=== PATIENT | female | born 1975 | race African-American/Black ===

== ENCOUNTER 2017-09-04 06:31 | Day surgery (SDC) | payer OTHER ==
[2017-08-28 09:18] LABS: HEMATOCRIT 42.3 % (36.0-47.0); HEMOGLOBIN 14.2 g/dL (12.0-15.5); MEAN CORPUSCULAR HEMOGLOBIN 28.8 pg (27.0-33.4); MEAN CORPUSCULAR HGB CONC 33.5 g/dL (32.0-36.0); MEAN CORPUSCULAR VOLUME 86 fl (80-97); PLATELET COUNT 160 10^3/uL (150-450); RED BLOOD COUNT 4.92 10^6/uL (3.72-5.28); RED CELL DISTRIBUTION WIDTH 13.6 % (11.5-14.0); WHITE BLOOD COUNT 7.9 10^3/uL (4.0-10.5)
[2017-08-28 09:43] LABS: ALANINE AMINOTRANSFERASE 29 U/L (9-52); ALBUMIN 4.3 g/dL (3.5-5.0); ALKALINE PHOSPHATASE 53 U/L (38-126); ANION GAP 10 (5-19); ASPARTATE AMINO TRANSFERASE 19 U/L (14-36); BILIRUBIN,DIRECT 0.3 mg/dL (0.0-0.4); BILIRUBIN,TOTAL 0.8 mg/dL (0.2-1.3); BLOOD UREA NITROGEN 18 mg/dL (7-20); CALCIUM 9.8 mg/dL (8.4-10.2); CARBON DIOXIDE 26 mmol/L (22-30); CHLORIDE 106 mmol/L (98-107); GLUCOSE 76 mg/dL (75-110); POTASSIUM 4.1 mmol/L (3.6-5.0); SODIUM 141.5 mmol/L (137-145); TOTAL PROTEIN 7.3 g/dL (6.3-8.2)
[~2017-09-04 06:31] MED LIST: CEFAZOLIN 2 GM/D5W RTU 2 GM/50 ML RTUPB IV PRN; LACTATED RINGERS 1000 ML IV PRN
[2017-09-04] MEDS ORDERED: DIPHENHYDRAMINE HCL 50 MG/ML VIAL ONE (07:13)
[2017-09-04] MEDS ORDERED: PROPOFOL INJ 200 MG/20 ML VIAL IV ONE (07:13)
[2017-09-04] MEDS ORDERED: MIDAZOLAM 2 MG/2 ML INJ ONE (07:13)
[2017-09-04] MEDS ORDERED: FENTANYL CITRATE INJ/PF 250 MCG/5 ML AMPULE ONE (07:13)
[2017-09-04] MEDS ORDERED: SCOPOLAMINE HYDROBROMIDE 1.5 MG PATCH.TD72 ONE (07:14)
[2017-09-04] MEDS ORDERED: ACETAMINOPHEN 100 ML IV ONE (07:14)
[2017-09-04] MEDS ORDERED: HYDROMORPHONE HCL INJ/PF 2 MG/ML AMPULE ONE ×2 (07:14→11:39)
[2017-09-04] MEDS ORDERED: IBUPROFEN 800 MG in NORMAL SALINE 250 ML IV PRN (07:36)
[2017-09-04] MEDS ORDERED: IBUPROFEN 800 MG in DEXTROSE 5%-WATER 250 ML IV PRN (08:00)
[2017-09-04] MEDS ORDERED: IBUPROFEN 800 MG in DEXTROSE 5%-WATER 250 ML IV ONE (08:00)
[2017-09-04] MEDS ORDERED: CLINDAMYCIN 900 MG/D5W RTU 50 ML IV PRN (08:28)
[2017-09-04] MEDS ORDERED: CLINDAMYCIN 900 MG/D5W RTU 50 ML IV ONE (08:28)
[2017-09-04] MEDS ORDERED: FENTANYL CITRATE INJ/PF 100 MCG/2 ML AMPUL IV PRN ×3 (09:14)
[2017-09-04] MEDS ORDERED: MORPHINE SULFATE 10 MG/ML INJ IV PRN ×2 (09:14→11:04)
[2017-09-04] MEDS ORDERED: MEPERIDINE HCL/PF INJ 25 MG/1 ML DISP.SYRIN IV PRN (09:14)
[2017-09-04] MEDS ORDERED: PROMETHAZINE HCL INJ 25 MG/1 ML VIAL IV PRN ×2 (09:14→11:05)
[2017-09-04] MEDS ORDERED: DIPHENHYDRAMINE HCL 50 MG/ML VIAL IV PRN (09:14)
[2017-09-04] MEDS ORDERED: BUPIVACAINE HCL 0.25 % INJ/PF (2.5 MG/1 ML) 30 ML VIAL ONE (09:40)
[2017-09-04] MEDS ORDERED: METHYLENE BLUE 50 MG/10 ML AMPULE ONE (09:41)
[2017-09-04] MEDS ORDERED: ONDANSETRON 4 MG TAB.RAPDIS PO PRN (11:05)
[2017-09-04] MEDS: FENTANYL CITRATE INJ/PF 100 MCG/2 ML AMPUL ONE ×2 (11:20→11:25)
[2017-09-04] MEDS ORDERED: NORMAL SALINE 1000 ML 1,000 ML IV ONE (12:00)
--- NOTE | 2017-09-04 12:54 | OPERATIVE REPORT E ---
Operative Report NAME: DORIE HERRERA : 1975 AGE: 42Y DATE OF SURGERY: 09/04/2017 ROOM: PREOPERATIVE DIAGNOSIS: 1. CHRONIC PELVIC PAIN. 2. STATUS POST HYSTEROSCOPY D AND C WITH NOVASURE ENDOMETRIAL ABLATION 1 YEAR AGO. POSTOPERATIVE DIAGNOSIS: 1. CHRONIC PELVIC PAIN. 2. STATUS POST HYSTEROSCOPY D AND C WITH NOVASURE ENDOMETRIAL ABLATION 1 YEAR AGO. OPERATION: 1. Robotic-assisted laparoscopic hysterectomy. 2. Cystoscopy. SURGEON: Ly Mane ANESTHESIA: General. ESTIMATED BLOOD LOSS: 100 mL. INTRAVENOUS FLUIDS: 2 L of normal saline. URINE OUTPUT: 200 mL clear urine. COMPLICATIONS: None. INDICATION: The patient is a 42-year-old G2, P2-0-0-2 with a history of hysteroscopy D and C with Novasure endometrial ablation 1 year ago with persistent chronic pelvic pain that was not responsive to previous surgical intervention. Patient desires definitive surgical treatment and removal of her uterus. Patient was counseled on procedure including but not limited to bleeding, infection, injury to surrounding organ and tissue including bladder, bowel, or vasculature and need of transfusion with packed red blood cells, or the possibility of turning the case into an exploratory laparotomy in case there is extensive bleeding that cannot be controlled via the robot. The patient understood and consented to the procedure and agreed to proceed to the operating room. FINDINGS: Normal ovaries bilaterally, previously surgically absent fallopian tubes due to previous bilateral salpingectomy, soft boggy uterus consistent with adenomyosis. PROCEDURE: Patient was taken to the operating room. General anesthesia was induced without difficulty. Patient was placed in the dorsal lithotomy position and was sterilely prepped and draped in the usual sterile. A Jun Hugger was placed to maintain control of core body temperature. Troy catheter was placed in the bladder. A single-tooth tenaculum was placed in the cervix and grasped the cervical os with a dilator. Uterus sounded to approximately 10 cm. Two [id number] stitches around 3 and 9 o'clock were placed for anchoring stitches before placing the VCare and the VCare manipulator was attached to the uterus in a cervical ring and anchored to the stitches on the right and left. The weighted speculum and single-tooth tenaculum were removed. Two sutures were placed on the lateral aspect of the cervix to be used as traction later for hemostasis as well in the procedure and were anchored to the stitches on the right and the left within the ring itself. A horizontal supraumbilical incision was performed where the Veress needle was introduced. The Veress needle was placed in the abdominal cavity. Through the Veress needle was carbon dioxide was infused until pneumoperitoneum was established and maintained, and this was done after a drop test was successfully performed. The Veress needle removed. Supraumbilical incision was slightly extended. A 12 mm trocar was inserted and placed in the abdominal cavity under direct visualization with the laparoscope without any difficulty. Trocar removed. The robot laparoscope was placed in the abdominal cavity. Please see the above findings. Three additional ports, one in the right lower, one in the left lower, and one in the right upper quadrant were inserted under direct visualization. Special attention was then paid to the ureters bilaterally and the ureters were both well away from the surgical field at all times. Peristalsis was visualized and it was normal in nature. At this point after visualizing the ureters and making sure that they were away from the surgical intervention, the right round ligament was cauterized and transected. The right utero-ovarian ligament was cauterized and transected all the way down to the level of uterine's. The right bladder flap side was initiated. The right uterine's were cauterized as well. On the contralateral side, it was performed in a similar fashion where the left round ligament was cauterized and transected, and the left utero-ovarian ligament was cauterized and transected all the way down to the level of the uterine's. The bladder flap from the contralateral side was performed and connecting it to the other side and pushing the bladder down as much as I could. The left uterine blood vessel was cauterized and transected. At this point, anterior colpotomy was performed circumscribing the cervix. After performing the anterior and posterior colpotomy and connecting in a circumscribed fashion, the uterus was removed with the cervix through the VCare. The vaginal cuff was closed using the V-Loc suture in a continuous fashion. At this time, irrigation was performed. The vaginal cuff was completely intact and no oozing was visualized from the pelvic sidewalls or the vaginal cuff. The bladder was far away from the vaginal cuff. Visualization of both the ureters were performed. Both ureters were peristalsing and acting normally. FloSeal was applied to the vaginal cuff region. At this point, after performing the vaginal cuff closure with the V-Loc suture and injecting with the FloSeal on the vaginal cuff, I asked Anesthesia to give methylene blue for the cystoscopy portion preparation. Cystoscopy was performed. The cystoscopy revealed completely normal ureters with blue hue coming through both the right and left ureters. Also, the bladder integrity was visualized. There were no foreign bodies, injuries, or sutures identified in the bladder. The double bubble sign were identified, and the integrity of the bladder wall was completely normal. At this point, the cystoscope was removed. A sponge stick was inserted vaginally to remove any residual blood clots and blood from the vagina mucosa. Attention was turned back to the abdomen, and one further visualization revealed completely hemostatic pelvic sidewalls and pelvic vaginal cuff. At this point, the laparoscope was removed, trocars were removed, and incisions were repaired with 4-0 Monocryl in a subcuticular fashion, 0.25% bupivacaine was inserted around the sites for postoperative pain control. Dermabond was applied on top of it. All sponge, lap, and needle counts were correct x2. The patient did receive prophylactic IV antibiotics. Patient tolerated the procedure well and was taken to the recovery room in stable condition. DICTATING PHYSICIAN: Ly Mane MD [id number] PHY#: [id number] ID: [id number] JOB#: [id number] ACCT: [id number] cc:Ly Mane >
[2017-09-04] MEDS: OXYCODONE-ACETAMINOPHEN 5-325 MG TABLET PO PRN ×2 (13:46→18:12)
[2017-09-04] MEDS: OXYCODONE HCL IR 5 MG TABLET PO PRN ×2 (13:46→18:12)
[2017-09-04] MEDS ORDERED: LIDOCAINE 2% INJ-PF (20 MG/ML) 2 ML AMPUL ONE (15:01)
[2017-09-04] MEDS ORDERED: DEXAMETHASONE SOD PHOSPHATE INJ 4 MG/1 ML VIAL ONE (15:01)
[2017-09-04] MEDS ORDERED: ROCURONIUM BROMIDE INJ 50 MG/5 ML VIAL IV ONE (15:01)
[2017-09-04] MEDS ORDERED: NEOSTIGMINE METHYLSULFATE 10 MG/10 ML VIAL ONE (15:01)
[2017-09-04] MEDS ORDERED: ONDANSETRON HCL INJ/PF 4 MG/2 ML SDV ONE (15:01)
[2017-09-04] MEDS ORDERED: METOCLOPRAMIDE HCL INJ/PF 10 MG/2 ML SDV ONE (15:01)
[2017-09-04] MEDS ORDERED: GLYCOPYRROLATE INJ 0.4 MG/2 ML VIAL ONE (15:01)
[2017-09-04 17:52] VITALS: BP 127/74
== END 2017-09-04 18:55 | disposition home or self-care (01) ==
LOC: OROUT 06:31 → 2N 12:39 → OROUT 18:55
PROVIDERS: ATTEND Obstetrics & Gynecology
PROC: 8E0W4CZ Robotic Assisted Procedure of Trunk Region, Percutaneous Endoscopic Approach (ICD-10-PCS; 2017-09-04)
PROC: 0UT94ZZ Resection of Uterus, Percutaneous Endoscopic Approach (ICD-10-PCS; principal; 2017-09-04 08:30)
DX: D25.1 Intramural leiomyoma of uterus (principal); G89.29 Other chronic pain; R10.2 Pelvic and perineal pain; I10 Essential (primary) hypertension; I49.9 Cardiac arrhythmia, unspecified; N80.0 Endometriosis of uterus
CPT/HCPCS: 58570; S2900; 36415; 80053; 81025; 85027; 86850; 86900; 86901; 88307; 944; J0131; J1100; J1170; J1200; J1741; J2250; J2405; J2704; J2765; J3010; J3490; J7050; J7060; Q9968